=== PATIENT | female | born 1965 ===

== ENCOUNTER 2016-07-10 21:45 | Inpatient (IN) | payer OTHER ==
[2016-07-10] MEDS ORDERED: Sodium Chloride 0.9% 1,000 ML IV ONE (22:40)
--- NOTE | 2016-07-10 22:40 | C.PDOC ---
History Of Present Illness Patient, with a past medical history of asthma, presents to the ED complaining of shortness of breath and cough for the past couple of days. Patient was seen by her PMD yesterday and her chest x-ray showed lingular pneumonia. Patient denies fever, chills, chest pain, nausea, or vomiting. Time Seen by Provider: 07/10/16 22:39 Chief Complaint (Nursing): Cough, Cold, Congestion History Per: Patient History/Exam Limitations: no limitations Onset/Duration Of Symptoms: Days (couple) Current Symptoms Are (Timing): Still Present Initiating Event: Upper Respiratory Illness Quality: Tightness Exacerbating Factor(s): Coughing Current Respiratory Medications: See Home Med List Severity: Moderate Pain Scale Rating Of: 4 Associated Symptoms: Fever, Chills Reports Recently: Treated By A Physician Recent travel outside of the [place]: No Additional History Per: Patient Past Medical History Reviewed: Historical Data, Nursing Documentation, Vital Signs Vital Signs: Last Vital Signs Temp 97.9 F 07/10/16 21:51 Pulse 89 07/10/16 21:51 Resp 18 07/10/16 21:51 BP 155/94 H 07/10/16 21:51 Pulse Ox 99 07/10/16 22:55 - Medical History PMH: Asthma Surgical History: Cholecystectomy Family History: States: Unknown Family Hx - Social History Hx Alcohol Use: No Hx Substance Use: No Review Of Systems Constitutional: Negative for: Fever, Chills Cardiovascular: Negative for: Chest Pain Respiratory: Positive for: Cough, Shortness of Breath Gastrointestinal: Negative for: Nausea, Vomiting Physical Exam - Physical Exam Appears: Non-toxic, No Acute Distress Skin: Warm, Dry Head: Normacephalic Eye(s): bilateral: Normal Inspection, PERRL, EOMI Oral Mucosa: Moist Neck: Supple Chest: Symmetrical Cardiovascular: Rhythm Regular Respiratory: No Rales, Rhonchi (scattered), Wheezing (few), Other (speaking in complete sentences) Gastrointestinal/Abdominal: Soft, No Tenderness, No Guarding, No Rebound Back: No CVA Tenderness Extremity: Normal ROM Extremity: Bilateral: Atraumatic, Normal Color And Temperature Neurological/Psych: Oriented x3, Normal Speech, Normal Cognition Gait: Steady ED Course And Treatment - Laboratory Results Result Diagrams: 07/10/16 22:52 07/10/16 22:52 O2 Sat by Pulse Oximetry: 99 (RA) Pulse Ox Interpretation: Normal Progress Note: Plan: EKG, Labs, IV fluids, Zithromax, Rocephin, Duoneb Disposition Discussed With : Yadi Wagner Comment: accepted the pt on h is service and took over the care at 11:09PM Counseled Patient/Family Regarding: Studies Performed, Diagnosis - Disposition Disposition: HOSPITALIZED Disposition Time: 22:40 Condition: FAIR - Clinical Impression Clinical Impression: Pneumonia - Scribe Statement The provider has reviewed the documentation as recorded by the Scribmarcello Barajas Provider Attestation: All medical record entries made by the Scribe were at my direction and personally dictated by me. I have reviewed the chart and agree that the record accurately reflects my personal performance of the history, physical exam, medical decision making, and the department course for this patient. I have also personally directed, reviewed, and agree with the discharge instructions and disposition. Decision To Admit - Pt Status Changed To: Hospital Disposition Of: Inpatient - Admit Certification Admit to Inpatient:: After my assessment, the patient will require hospitalization for at least two midnights. This is because of the severity of symptoms shown, intensity of services needed, and/or the medical risk in this patient being treated as an outpatient. - InPatient: Physician Admission Certification: I certify that this patient requires 2 or more midnights of care for the following reason:: After my assessment, the patient will require hospitalization for at least two midnights. This is because of the severity of symptoms shown, intensity of services needed, and/or the medical risk in this patient being treated as an outpatient. - . Bed Request Type: Regular Admitting Physician: Yadi Wagner Patient Diagnosis: Pneumonia
[2016-07-10] MEDS ORDERED: cefTRIAXone IV 1 gm in Dextros 50 ML IVPB ONE ×2 (22:41→23:32)
[2016-07-10] MEDS ORDERED: Azithromycin 500mg/250ML NS 250 ML IVPB SCH (22:45)
[2016-07-10 22:54] LABS: BASO # 0.2 K/uL (0.0-0.2); BASO % 2.2 % (0.0-2.0); EOS # 0.3 K/uL (0.0-0.7); EOS % 4.1 % (0.0-4.0); HEMATOCRIT 39.6 % (34.0-47.0); LYMPH # 1.7 K/uL (1.0-4.3); LYMPH % 24.2 % (20.0-40.0); MEAN CELL VOLUME 85.6 fL (81.0-99.0); MEAN CORPUSCULAR HGB CONC 32.7 g/dL (33.0-37.0); MEAN PLATELET VOLUME 8.8 fL (7.2-11.7); MONO # 0.6 K/uL (0.0-0.8); RED CELL DISTRIBUTION WIDTH 13.8 % (11.5-14.5); WHITE BLOOD COUNT 7.1 K/uL (4.8-10.8)
[2016-07-10 22:59] LABS: CHLORIDE 95 mmol/L (98-107); POTASSIUM 3.8 mmol/L (3.6-5.2); SODIUM 139 mmol/L (132-148)
[2016-07-10 23:01] LABS: ALB/GLOB RATIO 1.1 (1.0-2.1); AST/SGOT 64 U/L (14-36); BILIRUBIN,TOTAL 0.3 mg/dL (0.2-1.3); BLOOD UREA NITROGEN 11 mg/dL (7-17); CARBON DIOXIDE 27 mmol/L (22-30); GFR AFRICAN-AMERICAN > 60; TOTAL PROTEIN 8.9 g/dL (6.3-8.3)
[2016-07-10 23:02] LABS: ALKALINE PHOSPHATASE 115 U/L (38-126); ALT/SGPT 87 U/L (9-52); CALCIUM 9.5 mg/dl (8.6-10.4); GLUCOSE,RANDOM 134 mg/dL (65-105)
[2016-07-10] MEDS ORDERED: Sodium Chloride 0.9% 1,000 ML ONE (23:32)
[2016-07-10] MEDS: MethylPREDNISolone 40 mg Vial IVP SCH (23:39)
[2016-07-10] MEDS ORDERED: MethylPREDNISolone 40 mg Vial ONE (23:39)
[2016-07-10] MEDS: Albuterol-Ipratrop 3 mg / 0.5 (3 ml) UD IH SCH (23:40)
[2016-07-10] MEDS ORDERED: Albuterol-Ipratrop 3 mg / 0.5 (3 ml) UD ONE (23:47)
[2016-07-10] MEDS: Sodium Chloride 0.9% 1,000 ML IV SCH (23:50)
[2016-07-11] MEDS: Albuterol-Ipratrop 3 mg / 0.5 (3 ml) UD IH SCH ×2 (00:19)
[2016-07-11 02:48] VITALS: RESP 20
[2016-07-11] MEDS: Albuterol-Ipratrop 3 mg / 0.5 (3 ml) UD INH SCH ×3 (07:20→19:00)
[2016-07-11] MEDS: Azithromycin 500 MG in Sodium Chloride 0.9% 250 ML IVPB SCH (10:34)
[2016-07-11] MEDS: MethylPREDNISolone 40 mg Vial IVP SCH ×2 (11:07→21:23)
[2016-07-11] MEDS: Sodium Chloride 0.9% 1,000 ML IV SCH (11:14)
--- NOTE | 2016-07-11 23:25 | CP.PCM.HP ---
History of Present Illness - History of Present Illness History of Present Illness: Chief complaint: Cough History present illness: 50-year-old female with history of diabetes and hypertension came to the office with increasing cough. 1 week ago patient came to the office with worsening flulike symptoms. At the time patient was having severe cough, fever, chills, and nausea. Significant wheezing also noted at the time, and the patient was started on Augmentin 875 mg twice a day for at least 10 days. Patient was taking the medication, but the symptoms got worse, came to the office again, with the worsening symptoms. So he suggested to have x-ray of the chest which was done yesterday, showing evidence of possible left lower lung pneumonia. And in spite of the change in medication, her condition is not improving. Broncho-dilators is also ordered I suggested the patient given the worsening symptoms patient is to go to the hospital for further management. Present on Admission - Present on Admission Any Indicators Present on Admission: No History of DVT/PE: No History of Uncontrolled Diabetes: No Urinary Catheter: No Decubitus Ulcer Present: No Review of Systems - Review of Systems All systems: reviewed and no additional remarkable complaints except Review of Systems: Patient is currently having minimal headache because of the cough and wheezing. Chest discomfort noted, associate with the cough. Progressively worsening mucus noted No fever currently, but chills present denies any nausea vomiting. Chills noted, weakness present, no diarrhea Past Patient History - Past Medical History & Family History Past Medical History?: Yes - Past Social History Smoking Status: Never Smoked - CARDIAC Hx Cardiac Disorders: No - PULMONARY Hx Respiratory Disorders: Yes Hx Asthma: Yes - NEUROLOGICAL Hx Neurological Disorder: No - HEENT Hx HEENT Problems: Yes Other/Comment: wear prescription eyeglasses - RENAL Hx Chronic Kidney Disease: No - ENDOCRINE/METABOLIC Hx Endocrine Disorders: Yes Hx Diabetes Mellitus Type 2: Yes - HEMATOLOGICAL/ONCOLOGICAL Hx Blood Disorders: No - INTEGUMENTARY Hx Dermatological Problems: Yes Hx Cellulitis: Yes (right leg) - MUSCULOSKELETAL/RHEUMATOLOGICAL Hx Musculoskeletal Disorders: Yes Hx Falls: No Other/Comment: right knee arthroscopy - GASTROINTESTINAL Hx Gastrointestinal Disorders: No - GENITOURINARY/GYNECOLOGICAL Hx Genitourinary Disorders: No - PSYCHIATRIC Hx Psychophysiologic Disorder: No Hx Substance Use: No - SURGICAL HISTORY Hx Surgeries: Yes Hx Cholecystectomy: Yes - ANESTHESIA Hx Anesthesia: Yes Hx Anesthesia Reactions: No Meds Allergies/Adverse Reactions: Allergies Allergy/AdvReac Type Severity Reaction Status Date / Time Iodinated Contrast Media - Allergy Verified 07/10/16 21:56 Oral and sulfamethoxazole Allergy Verified 07/10/16 21:56 [From Bactrim] trimethoprim [From Bactrim] Allergy Verified 07/10/16 21:56 Physical Exam - Constitutional Additional comments: HEENT PERRLA, neck supple chest good air entry, significant rales and wheezing noted in the left lower lung, regular heart sound nontender abdomen no pedal edema Results - Vital Signs Recent Vital Signs: Last Vital Signs Temp 97.7 F 07/11/16 15:00 Pulse 102 H 07/11/16 15:00 Resp 20 07/11/16 15:00 BP 130/79 07/11/16 15:00 Pulse Ox 98 07/11/16 15:00 - Labs Result Diagrams: 07/10/16 22:52 07/10/16 22:52 Labs: Laboratory Results - last 24 hr 07/11/16 07/11/16 07/11/16 07:04 11:38 16:17 POC Glucose (mg/dL) 283 H 248 H 264 H 07/11/16 21:52 POC Glucose (mg/dL) 237 H Assessment & Plan (1) Pneumonia Assessment and Plan: Patient being hospitalized because of the worsening pneumonia, left lower lung infiltrate. Patient started on antibiotic, IV hydration, as well as steroid intravenously Status: Acute (2) Diabetes Assessment and Plan: Diabetes patient is having significant improvement in the hemoglobin A1c. Glucose control. We'll monitor the hemoglobin A1c Status: Acute (3) Failure of outpatient treatment Status: Acute
[2016-07-12] MEDS: Albuterol-Ipratrop 3 mg / 0.5 (3 ml) UD INH SCH ×4 (01:49→20:12)
[2016-07-12 07:38] LABS: HEMATOCRIT 32.8 % (34.0-47.0); MEAN CELL VOLUME 84.4 fL (81.0-99.0); MEAN CORPUSCULAR HEMOGLOBIN 27.6 pg (27.0-31.0); MEAN CORPUSCULAR HGB CONC 32.7 g/dL (33.0-37.0); MEAN PLATELET VOLUME 8.8 fL (7.2-11.7); RED CELL DISTRIBUTION WIDTH 13.7 % (11.5-14.5); WHITE BLOOD COUNT 7.9 K/uL (4.8-10.8)
[2016-07-12 07:41] LABS: CHLORIDE 102 mmol/L (98-107)
[2016-07-12 07:42] LABS: POTASSIUM 4.3 mmol/L (3.6-5.2); SODIUM 137 mmol/L (132-148)
[2016-07-12 07:44] LABS: GFR AFRICAN-AMERICAN > 60
[2016-07-12 07:45] LABS: ALB/GLOB RATIO 1.2 (1.0-2.1); ALKALINE PHOSPHATASE 86 U/L (38-126); ALT/SGPT 59 U/L (9-52); AST/SGOT 25 U/L (14-36); BILIRUBIN,TOTAL 0.5 mg/dL (0.2-1.3); BLOOD UREA NITROGEN 13 mg/dL (7-17); CALCIUM 8.4 mg/dl (8.6-10.4); CARBON DIOXIDE 23 mmol/L (22-30); GLUCOSE,RANDOM 281 mg/dL (65-105); TOTAL PROTEIN 7.4 g/dL (6.3-8.3)
[2016-07-12] MEDS: MethylPREDNISolone 40 mg Vial IVP SCH ×2 (08:29→20:46)
[2016-07-12] MEDS: Azithromycin 500 MG in Sodium Chloride 0.9% 250 ML IVPB SCH (10:19)
--- NOTE | 2016-07-12 11:00 | RAD ---
Chest x-ray two views History: Pneumonia. Comparison: None available. Findings: No focal infiltrate or effusion. Heart size within normal limits. Impression: No focal infiltrate or effusion.
--- NOTE | 2016-07-12 23:27 | CP.PCM.PN ---
Subjective - Date & Time of Evaluation Date of Evaluation: 07/12/16 Time of Evaluation: 23:27 - Subjective Subjective: Patient is currently having minimal cough, slightly better than yesterday. Cough is associated with the mucus production. Thick yellow mucus noted. No fever. Denies any diarrhea. No vomiting no chest pain noted Objective - Vital Signs/Intake and Output Vital Signs (last 24 hours): Temp Pulse Resp BP Pulse Ox 97.8 F 80 20 123/67 97 07/12/16 16:00 07/12/16 16:00 07/12/16 16:00 07/12/16 16:00 07/12/16 16:00 - Medications Medications: Current Medications Albuterol/Ipratropium (Duoneb 3 Mg/0.5 Mg (3 Ml) Ud) 3 ml INH RQ6 [facility] Last Admin: 07/12/16 20:12 Dose: 3 ml Azithromycin 500 mg/ Sodium (Chloride) 250 mls @ 250 mls/hr IVPB DAILY@1100 [facility] Last Admin: 07/12/16 10:19 Dose: 250 mls/hr Ceftriaxone Sodium 1 gm/ (Sodium Chloride) 100 mls @ 100 mls/hr IVPB DAILY [facility] Last Admin: 07/12/16 09:41 Dose: 100 mls/hr Metformin HCl (Glucophage) 500 mg PO BID [facility] Last Admin: 07/12/16 17:33 Dose: 500 mg Methylprednisolone (Solu-Medrol) 20 mg IVP Q12H [facility] Last Admin: 07/12/16 20:46 Dose: 20 mg Pneumococcal Polyvalent Vaccine (Pneumovax 23 Vaccine) 0.5 ml IM .ONCE ONE Stop: 07/13/16 10:01 - Labs Labs: 07/12/16 07:22 07/12/16 07:22 - Head Exam Additional comments: Chest bilateral good air entry, rales and wheezing noted on the left lung. Regular heart sound nontender abdomen CONTROL TECHNICIAN alert awake oriented 3. Assessment and Plan (1) Pneumonia Assessment & Plan: acute pneumonia, failed outpatient treatment, currently on intravenous antibiotic. Also low-dose corticosteroids, receiving broncho-dilators. Continue the current treatment. Still patient needs 2 more days of antibiotic will monitor the patient. Status: Acute (2) Diabetes Status: Acute (3) Failure of outpatient treatment Status: Acute
[2016-07-13] MEDS: Albuterol-Ipratrop 3 mg / 0.5 (3 ml) UD INH SCH ×4 (01:26→20:54)
[2016-07-13] MEDS: MethylPREDNISolone 40 mg Vial IVP SCH ×2 (09:49→21:50)
[2016-07-13] MEDS ORDERED: Pneumococcal 23-Valent Vaccine IM ONE (10:00)
[2016-07-13] MEDS: Azithromycin 500 MG in Sodium Chloride 0.9% 250 ML IVPB SCH (11:12)
--- NOTE | 2016-07-13 16:35 | CARD ---
APPROVED REPORT EKG Measurement Heart [id number] <Conclusion> Sinus tachycardia Otherwise normal ECG
--- NOTE | 2016-07-13 18:47 | CP.PCM.PN ---
Subjective - Date & Time of Evaluation Date of Evaluation: 07/13/16 Time of Evaluation: 18:47 - Subjective Subjective: Patient is having worsening cough today, but white mucus noted. No fever or chills. Appetite is good, no diarrhea noted No rash or no competition from the antibiotic so far Objective - Vital Signs/Intake and Output Vital Signs (last 24 hours): Temp Pulse Resp BP Pulse Ox 97.8 F 85 20 147/88 97 07/13/16 16:32 07/13/16 16:32 07/13/16 16:32 07/13/16 16:32 07/13/16 16:32 Intake and Output: 07/13/16 07/13/16 06:59 18:59 Intake Total 200 Balance 200 - Medications Medications: Current Medications Albuterol/Ipratropium (Duoneb 3 Mg/0.5 Mg (3 Ml) Ud) 3 ml INH RQ6 [facility] Last Admin: 07/13/16 13:48 Dose: 3 ml Azithromycin 500 mg/ Sodium (Chloride) 250 mls @ 250 mls/hr IVPB DAILY@1100 [facility] Last Admin: 07/13/16 11:12 Dose: 250 mls/hr Ceftriaxone Sodium 1 gm/ (Sodium Chloride) 100 mls @ 100 mls/hr IVPB DAILY [facility] Last Admin: 07/13/16 09:53 Dose: 100 mls/hr Metformin HCl (Glucophage) 500 mg PO BID [facility] Last Admin: 07/13/16 17:31 Dose: 500 mg Methylprednisolone (Solu-Medrol) 20 mg IVP Q12H [facility] Last Admin: 07/13/16 09:49 Dose: 20 mg - Labs Labs: 07/12/16 07:22 07/12/16 07:22 - Head Exam Additional comments: Chest bilateral good air entry, rales and wheezing noted on the left lung. Regular heart sound reviewed Nontender abdomen. Edema negative Assessment and Plan (1) Pneumonia Assessment & Plan: Patient with acute pneumonia, complicated with worsening cough. Family outpatient treatment. On intravenous antibiotic and corticosteroids. Continue the above good bilateral, will continue to monitor. Possible discharge planning the morning I advised the patient for CAT scan, but the patient refused for CAT scan of the chest Status: Acute (2) Diabetes Status: Acute (3) Failure of outpatient treatment Status: Acute
[2016-07-14 00:02] VITALS: PULSE 84
[2016-07-14] MEDS: Albuterol-Ipratrop 3 mg / 0.5 (3 ml) UD INH SCH ×3 (02:14→13:29)
[2016-07-14] MEDS: MethylPREDNISolone 40 mg Vial IVP SCH (09:03)
[2016-07-14] MEDS: Azithromycin 500 MG in Sodium Chloride 0.9% 250 ML IVPB SCH (10:41)
[2016-07-14 13:49] VITALS: BP 144/83; TEMP 98; O2SAT 97
[2016-07-15] MEDS ORDERED: MethylPREDNISolone 40 mg Vial IVP SCH (10:00)
--- NOTE | 2016-08-25 20:08 | DS ---
HISTORY: This is a 50-year-old female with a history of diabetes and hypertension, who initially cam e to the office with flu-like symptoms, placed on p.o. antibiotic and also bronchodilators for her ac [place] asthma at the time, but the patient's condition got worse and she started having increasing chest pain associated with cough and mucus production and shortness of breath, so the patient was hospital ized with the failed outpatient treatment as well as possible pneumonia. Chest x-ray showed pn eumonia also. The patient was hospitalized and she was started on IV antibiotic, IV hydration and gl ucose control started. The patient was being treated for worsening pneumonia, especially involving t he left lower lung. During the stay in the hospital, the patient continues to receive antibiotics, p hysical therapy and glucose control. Clinically, the patient improved. Cough also got better. The patient is clinically stable. She will be discharged home and follow up as an outpatient. FINAL DIAGNOSES: Acute pneumonia, failed outpatient treatment, diabetes, hypertension. DISPOSITION: Medications were reviewed and discussed with the patient. She will follow up as an out patient after that. Yadi Wagner MD cc: [id number] TT: 08/25/2016 20:07:55 [email or web address]
== END 2016-07-14 17:04 | disposition home or self-care (01) | DRG 195 ==
LOC: C.ER 21:45 → C.9E 23:10 → C.3T 07-11 00:03
PROVIDERS: ADMIT Internal Medicine; ATTEND Internal Medicine
DX: J18.9 Pneumonia, unspecified organism (principal); E11.9 Type 2 diabetes mellitus without complications; J45.909 Unspecified asthma, uncomplicated; Z79.84 Long term (current) use of oral hypoglycemic drugs; Z90.49 Acquired absence of other specified parts of digestive tract

== ENCOUNTER 2018-08-17 08:56 | Outpatient (CLI) | payer OTHER | END 2018-08-17 08:57 | disposition home or self-care (01) | LOC: C.LAB 08:56 | DX: E11.9 Type 2 diabetes mellitus without complications (principal) ==